=== PATIENT | male | born 1960 | race Caucasian/White ===

== ENCOUNTER → 2019-01-13 | Outpatient (CLI) | payer OTHER ==
[2019-01-13 07:22] LABS: HCT 46.5 % (39.0-53.0); HGB 15.9 gm/dL (13.0-17.5); MCH 33.2 pg (25.0-35.0); MCHC 34.1 g/dL (31.0-37.0); MCV 97.4 fL (80.0-100.0); Mean Platelet Volume 6.8; Platelet Count 231 k/uL (150-450); RBC 4.77 m/uL (4.30-5.90); RDW 12.9 % (11.5-15.5); WBC 7.7 k/uL (3.8-10.6)
[2019-01-13 13:38] LABS: Albumin 4.5 g/dL (3.80-4.90); Albumin/Globulin Ratio 2.14 (1.60-3.17); Anion Gap 9.8 mmol/L (4.00-12.00); Calcium 9.5 mg/dL (8.7-10.3); Carbon Dioxide 27.2 mmol/L (21.6-31.8); Globulin 2.1 g/dL (1.6-3.3); LDL Cholesterol,Calculated 105.2 mg/dL (0.0-131.0); Potassium 4.7 mmol/L (3.5-5.5); Total Bilirubin 0.6 mg/dL (0.3-1.2); Total Protein 6.6 g/dL (6.2-8.2); VLDL Calculation 23.8 mg/dL (5.00-40.00)
[2019-01-13 14:40] LABS: Hemoglobin A1C 6.3 % (4.0-6.0)
== END ==
LOC: LABWHC1 06:42
PROVIDERS: ATTEND Internal Medicine
DX: E11.65 Type 2 diabetes mellitus with hyperglycemia (principal); E87.8 Other disorders of electrolyte and fluid balance, not elsewhere classified; E78.41 Elevated Lipoprotein(a); N40.0 Benign prostatic hyperplasia without lower urinary tract symptoms; R53.83 Other fatigue; Z12.9 Encounter for screening for malignant neoplasm, site unspecified; Z13.9 Encounter for screening, unspecified; Z13.220 Encounter for screening for lipoid disorders; Z13.228 Encounter for screening for other metabolic disorders
CPT/HCPCS: 36415; 80053; 80061; 83036; 84153; 85027

== ENCOUNTER → 2020-12-20 | Outpatient (CLI) | payer OTHER ==
--- NOTE | 2020-12-20 08:00 | US ---
EXAMINATION TYPE: US abdomen complete DATE OF EXAM: 12/20/2020 COMPARISON: NONE CLINICAL HISTORY: R94.5 Increased Liver Function. EXAM MEASUREMENTS: Liver Length: 15.3 cm Gallbladder Wall: Surgically absent CBD: 0.5 cm Spleen: 11.7 cm Right Kidney: 11.4 x 4.6 x 5.4 cm Left Kidney: 10.7 x 5.1 x 6.0 cm Extensive midline bowel gas. Pancreas: Tail obscured by overlying bowel gas Liver: Increased attenuation Gallbladder: Surgically absent Evidence for sonographic Marinelli's sign: no CBD: limited visualization Spleen: wnl Right Kidney: No hydronephrosis or masses seen Left Kidney: parapelvic cysts, largest measuring 1.2 x 1.0 x 1.0cm Upper IVC: wnl Abd Aorta: bifurcation obscured by bowel gas, otherwise wnl The liver is homogenous. The intrahepatic portion of the IVC and proximal abdominal aorta are within normal limits. Common bile duct is unremarkable. The visualized portions of the pancreas are homog enous. The spleen is unremarkable. Kidneys are symmetric and free of hydronephrosis. No renal lesi ons are seen. IMPRESSION: No distinct abnormality seen.
== END | disposition home or self-care (01) ==
LOC: RADUSWWP 06:59
PROVIDERS: ATTEND Family Medicine
DX: R94.5 Abnormal results of liver function studies (principal)
CPT/HCPCS: 76700

== ENCOUNTER → 2023-05-05 | Outpatient (CLI) | payer BC ==
[2023-05-05 09:00] LABS: African American GFR (CKD) >90 (>60 ml/min/1.73 sqM); Blood Urea Nitrogen 21 mg/dL (9-20); Non-African American GFR(CKD) >90 (>60 ml/min/1.73 sqM)
--- NOTE | 2023-05-05 09:31 | CT ---
EXAMINATION TYPE: CT chest w con CT DLP: 577 mGycm, Automated exposure control for dose reduction was used. DATE OF EXAM: 05/05/2023 9:22 AM COMPARISON: Chest radiograph from 06/19/2011 CLINICAL INDICATION:Male, 62 years old with history of R59.0 LOCALIZED ENLARGED LYMPH NODES; PHH, ENL ARGED LYMPH NODES /SPOT ON LUNGS TECHNIQUE: Multiple axial images were obtained through the chest following the administration of 100 cc of Isovue 300. . Coronal and sagittal reformats reviewed. FINDINGS: LUNGS/ PLEURA: No pleural effusion, pneumothorax, focal consolidation. No suspicious pulmonary mass o r nodule. Calcified granuloma along the left major fissure. Subpleural reticular opacities primarily within the lung bases and upper lobes bilaterally. AIRWAY: Patent and unremarkable.. HEART: Size within normal limits. No pericardial effusion. MEDIASTINUM: Nonspecific enlarged subcarinal lymph node measuring 1.2 cm short axis and prevascular s pace lymph node measuring 1.1 cm short axis. No axillary adenopathy. VASCULATURE: No aortic aneurysm. MUSCULOSKELETAL: No acute osseous abnormalities SOFT TISSUES/LYMPH NODES: Minimal bilateral gynecomastia. LOWER NECK: No significant findings. UPPER ABDOMEN: Diffuse low-attenuation to the liver parenchyma. Post cholecystectomy changes. Nonobst ructive right renal 2 mm calculus. IMPRESSION: 1. Subpleural reticular opacities primarily within the lung bases and bilateral upper lobes. Correla te for atypical pneumonia versus developing interstitial disease. Consider short-term follow-up exam in 3 months. 2. Couple of enlarged nonspecific mediastinal lymph nodes measuring up to 1.2 centimeters short axis . This may be reactive to #1. 3. Hepatic steatosis. 4. Nonobstructive right renal calculus.
== END | disposition home or self-care (01) ==
LOC: RADCTMAIN 08:13
PROVIDERS: ATTEND Family Medicine
DX: R91.8 Other nonspecific abnormal finding of lung field (principal); N20.0 Calculus of kidney; K76.0 Fatty (change of) liver, not elsewhere classified; R59.0 Localized enlarged lymph nodes
CPT/HCPCS: 82565; 84520; 71260; 36415; Q9967

== ENCOUNTER → 2023-07-15 | Outpatient (CLI) | payer BC ==
[2023-07-15 13:48] LABS: African American GFR (CKD) >90 (>60 ml/min/1.73 sqM); Blood Urea Nitrogen 24 mg/dL (9-20); Non-African American GFR(CKD) 88 (>60 ml/min/1.73 sqM)
--- NOTE | 2023-07-15 14:57 | CT ---
EXAMINATION TYPE: CT chest w con CT DLP: 432.0 mGycm, Automated exposure control for dose reduction was used. DATE OF EXAM: 07/15/2023 2:47 PM COMPARISON: CT 05/05/2023. CLINICAL INDICATION:Male, 62 years old with history of R59.0 LOCALIZED ENLARGED LYMPH NODES; PHH, enl arged lymph nodes TECHNIQUE: Multiple axial images were obtained through the chest. Sagittal and coronal reformats were created for review. Contrast used:100 mL of Isovue 300 with IV Contrast (None if empty) Oral contrast used: (None if empty) FINDINGS: LUNGS/ PLEURA: Scattered scattered reticular opacities throughout the lungs are predominantly periphe rally and not significantly changed. There is no focal consolidation, pneumothorax or pleural effusio n. Intrafissural lymph node along the left major fissure. Series 4 image 27. AIRWAY: Patent and unremarkable. HEART: Heart is mildly enlarged for size. There is mild coronary artery atherosclerosis. MEDIASTINUM: Prominent lymph node in the prevascular spacer of the anterior mediastinum measuring 10 mm which is at the upper limits of normal. Subcarinal region lymph node measuring up to 1.3 cm. Both these are similar to prior. VASCULATURE: Atherosclerotic calcifications are present throughout the aorta and its branches. MUSCULOSKELETAL: Mild disc degeneration changes are present throughout the thoracolumbar spine. SOFT TISSUES/LYMPH NODES: Unremarkable. LOWER NECK: No significant findings. UPPER ABDOMEN: The gallbladder surgically absent. Mild hepatic steatosis. IMPRESSION: 1. Stable mediastinal lymph node measuring up to 1.0 cm in the prevascular space and subcarinal radha on. Findings could be secondary to #2. 2. Similar reticular predominantly peripheral opacities throughout the lungs could represent [facility]pec [facility] pneum[facility] changes. 3. Hepatic steatosis. 4. Mild coronary artery atherosclerosis with mild cardiomegaly.
== END | disposition home or self-care (01) ==
LOC: RADCTMAIN 12:55
PROVIDERS: ATTEND Family Medicine
DX: I25.10 Atherosclerotic heart disease of native coronary artery without angina pectoris (principal); K76.0 Fatty (change of) liver, not elsewhere classified; R59.0 Localized enlarged lymph nodes; I51.7 Cardiomegaly
CPT/HCPCS: 82565; 84520; 71260; 36415; Q9967

== ENCOUNTER 2024-01-26 07:44 | Day surgery (SDC) | payer BC ==
[2024-01-20 09:05] VITALS: BMI 31.9
[~2024-01-26 07:44] MED LIST: LIDOCAINE 1% (10MG/ML) FOR IV START INTRADERMA PRN
[2024-01-26] MEDS: LACTATED RINGERS 1,000 ML IV SCH (08:10)
[2024-01-26 08:21] LABS: Glucose,Whole Blood 85 mg/dL (70-110)
[2024-01-26 08:25] VITALS: RESP 18; TEMP 97.5
[2024-01-26] MEDS ORDERED: LIDOCAINE 1% INJ 10MG/ML (20 ML MDV) ONE (08:28)
[2024-01-26] MEDS ORDERED: fentaNYL (PF) 50 MCG/ML 2 ML AMP ONE (08:28)
[2024-01-26] MEDS ORDERED: PROPOFOL 10 MG/ML 20 ML VIAL IV ONE (08:28)
--- NOTE | 2024-01-26 08:37 | P.GSHP ---
History of Present Illness H&P Date: 01/26/24 Chief Complaint: Colon cancer screening 63-year-old male here for colonoscopy. Says his last 1 was about 5 years ago. Believes this is his third colonoscopy. Previously normal. No family history of colon cancer. No bowel complaints. Past Medical History Past Medical History: Diabetes Mellitus, Hyperlipidemia, Osteoarthritis (OA), Sleep Apnea/CPAP/BIPAP Additional Past Medical History / Comment(s): haSN'T needed CPAP since weight loss, fatty liver History of Any Multi-Drug Resistant Organisms: None Reported Past Surgical History: Appendectomy, Cholecystectomy Additional Past Surgical History / Comment(s): colonoscopies, BILAT CATARACTS REMOVED WITH LENS IMPLANTS Past Anesthesia/Blood Transfusion Reactions: No Reported Reaction Smoking Status: Never smoker - Past Family History Mother Family Medical History: No Reported History Medications and Allergies Home Medications Medication Instructions Recorded Confirmed Type Atorvastatin [Lipitor] 20 mg PO HS 12/18/23 01/26/24 History Cinnamon Bark [Cinnamon] 500 mg PO DAILY 12/18/23 01/26/24 History Milk Thistle 150 mg PO DAILY 12/18/23 01/26/24 History Multivitamins, Thera [Multivitamin 1 tab PO DAILY 12/18/23 01/26/24 History (formulary)] Semaglutide [Ozempic] 0.5 mg SQ SA 12/18/23 01/26/24 History Sertraline [Zoloft] 100 mg PO HS 12/18/23 01/26/24 History Allergies Allergy/AdvReac Type Severity Reaction Status Date / Time codeine Allergy Rapid Verified 01/26/24 08:12 Heart Rate Surgical - Exam Vital Signs Temp Pulse Resp BP Pulse Ox 97.5 F L 84 18 138/99 98 01/26/24 08:22 01/26/24 08:22 01/26/24 08:22 01/26/24 08:22 01/26/24 08:22 Physical exam: General: Well-developed, well-nourished HEENT: Normocephalic, sclerae nonicteric Abdomen: Nontender, nondistended Extremities: No edema Neuro: Alert and oriented Assessment and Plan (1) Colon cancer screening Narrative/Plan: Will proceed with colonoscopy at this time. Current Visit: Yes Status: Acute Code(s): Z12.11 - ENCOUNTER FOR SCREENING FOR MALIGNANT NEOPLASM OF COLON SNOMED Code(s): 591569699
--- NOTE | 2024-01-26 08:51 | P.PCN ---
Date of Procedure: 01/26/24 Procedure(s) Performed: PREOPERATIVE DIAGNOSIS: Colon cancer screening POSTOPERATIVE DIAGNOSIS: Small rectal polyp PROCEDURE: Colonoscopy with snare polypectomy ANESTHESIA: MAC SURGEON: Jayson Little M.D. SPECIMENS: Polyp ENDOSCOPIC PROCEDURE: The patient was placed on the endoscopy table in the left decubitus position. The Olympus colonoscope was inserted into the anus and passed under direct visualization to the base of the cecum. The appendiceal orifice was visualized. From that point the scope was slowly withdrawn inspecting all surfaces carefully. There were no neoplastic inflammatory or polypoid lesions throughout the cecum, ascending, transverse, descending, and sigmoid colon. In the rectum a small polyp was seen and removed using the snare with cautery technique. No visible diverticulosis was noted. Digital rectal examination was normal. The patient was taken to the recovery room in stable condition per anesthesia guidelines. RECOMMENDATIONS: Await biopsy results. Anticipate repeat colonoscopy 5 to 10 years.
[2024-01-26 10:17] VITALS: BP 137/78; PULSE 64
== END 2024-01-26 09:30 | disposition home or self-care (01) ==
LOC: ORWHC2ENDO 07:44
PROVIDERS: ATTEND Surgery
DX: Z12.11 Encounter for screening for malignant neoplasm of colon (principal); D12.8 Benign neoplasm of rectum; K76.0 Fatty (change of) liver, not elsewhere classified; M19.90 Unspecified osteoarthritis, unspecified site; E78.5 Hyperlipidemia, unspecified; G47.33 Obstructive sleep apnea (adult) (pediatric); E11.9 Type 2 diabetes mellitus without complications; Z90.49 Acquired absence of other specified parts of digestive tract; Z79.899 Other long term (current) drug therapy; Z88.5 Allergy status to narcotic agent
CPT/HCPCS: 88305; 45385; J2001; J3010; J2704

== ENCOUNTER 2024-03-22 17:13 | Emergency (ER) | payer BC ==
[2024-03-22] MEDS: ONDANSETRON ODT 4 MG TAB PO STA (17:56)
--- NOTE | 2024-03-22 18:11 | ED ---
General Adult HPI - General Chief complaint: Nausea/Vomiting/Diarrhea Stated complaint: vomiting Time Seen by Provider: 03/22/24 18:08 Source: patient, RN notes reviewed Mode of arrival: ambulatory Limitations: no limitations - History of Present Illness Initial comments: 63-year-old male presents to the emergency department for evaluation of nausea, vomiting. Patient states that this started around 8 PM last night. He admits to some right-sided flank pain and diffuse abdominal discomfort. He states that this is worsened as he has been here. Admits to diarrhea. Denies fever, chills. Denies hematuria, dysuria. - Related Data Home Medications Medication Instructions Recorded Confirmed Atorvastatin [Lipitor] 20 mg PO HS 12/18/23 01/26/24 Cinnamon Bark [Cinnamon] 500 mg PO DAILY 12/18/23 01/26/24 Milk Thistle 150 mg PO DAILY 12/18/23 01/26/24 Multivitamins, Thera [Multivitamin 1 tab PO DAILY 12/18/23 01/26/24 (formulary)] Semaglutide [Ozempic] 0.5 mg SQ SA 12/18/23 01/26/24 Sertraline [Zoloft] 100 mg PO HS 12/18/23 01/26/24 Previous Rx's Medication Instructions Recorded HYDROcodone/APAP 10-325MG [[place] 1 tab PO Q6H PRN #12 tab 03/22/24 10-325] Ketorolac [Toradol] 10 mg PO Q8HR #15 tab 03/22/24 Ondansetron Odt [Zofran Odt] 4 mg PO Q8HR PRN #10 tab 03/22/24 Tamsulosin [Flomax] 0.4 mg PO DAILY #7 cap 03/22/24 Allergies Allergy/AdvReac Type Severity Reaction Status Date / Time codeine Allergy Rapid Verified 01/26/24 08:12 Heart Rate Review of Systems ROS Statement: Those systems with pertinent positive or pertinent negative responses have been documented in the HPI. ROS Other: All systems not noted in ROS Statement are negative. Past Medical History Past Medical History: Diabetes Mellitus, Hyperlipidemia, Osteoarthritis (OA), Sleep Apnea/CPAP/BIPAP Additional Past Medical History / Comment(s): haSN'T needed CPAP since weight loss, fatty liver History of Any Multi-Drug Resistant Organisms: None Reported Past Surgical History: Appendectomy, Cholecystectomy Additional Past Surgical History / Comment(s): colonoscopies, BILAT CATARACTS REMOVED WITH LENS IMPLANTS Past Anesthesia/Blood Transfusion Reactions: No Reported Reaction Past Psychological History: No Psychological Hx Reported Smoking Status: Never smoker Past Alcohol Use History: None Reported Past Drug Use History: None Reported - Past Family History Mother Family Medical History: No Reported History General Exam - General Exam Comments Initial Comments: Visual Physical Exam Vital signs reviewed General: Well-appearing, nontoxic, no acute distress. Head: Normocephalic, atraumatic Eyes: PERRLA, EOMI ENT: Airway patent Chest: Nonlabored breathing Skin: No visual rash, normal skin tone Neuro: Alert and oriented 3 Musculoskeletal: No gross abnormalities Limitations: no limitations General appearance: alert, in no apparent distress Head exam: Present: atraumatic, normocephalic, normal inspection Eye exam: Present: normal appearance, PERRL, EOMI. Absent: scleral icterus, conjunctival injection, periorbital swelling ENT exam: Present: normal exam, mucous membranes moist Neck exam: Present: normal inspection. Absent: tenderness, meningismus, lymphadenopathy Respiratory exam: Present: normal lung sounds bilaterally. Absent: respiratory distress, wheezes, rales, rhonchi, stridor Cardiovascular Exam: Present: regular rate, normal rhythm, normal heart sounds. Absent: systolic murmur, diastolic murmur, rubs, gallop, clicks GI/Abdominal exam: Present: soft, normal bowel sounds. Absent: distended, tenderness, guarding, rebound, rigid Extremities exam: Present: normal inspection, full ROM, normal capillary refill. Absent: tenderness, pedal edema, joint swelling, calf tenderness Back exam: Present: CVA tenderness (R). Absent: CVA tenderness (L) Neurological exam: Present: alert, oriented X3 Psychiatric exam: Present: normal affect, normal mood Skin exam: Present: warm, dry, intact, normal color. Absent: rash Course Vital Signs 03/22/24 03/22/24 03/22/24 17:51 21:43 22:43 Temperature 97.4 F L 97.8 F 97.4 F L Pulse Rate 72 81 79 Respiratory 18 20 18 Rate Blood Pressure 166/66 161/76 140/69 O2 Sat by Pulse 97 98 97 Oximetry Medical Decision Making - Medical Decision Making Quick note preformed and electronically signed by DESIRAE Orozco-Rubina Was pt. sent in by a medical professional or institution (DESIRAE Casillas, EQUIPMENT SPECIALIST, urgent care, hospital, or retirement...) When possible be specific @ -[No] Did you speak to anyone other than the patient for history (EMS, parent, family, police, friend...)? What history was obtained from this source @ -[No] Did you review nursing and triage notes (agree or disagree)? Why? @ -[I reviewed and agree with nursing and triage notes] Were old charts reviewed (outside hosp., previous admission, EMS record, old EKG, old radiological studies, urgent care reports/EKG's, retirement records)? Report findings @ -[No old charts were reviewed] Differential Diagnosis (chest pain, altered mental status, abdominal pain women, abdominal pain men, vaginal bleeding, weakness, fever, dyspnea, syncope, headache, dizziness, GI bleed, back pain, seizure, CVA, palpatations, mental health, musculoskeletal)? @ -Differential Abdominal Pain Men: Appendicitis, cholecystitis, diverticulosis, ischemic bowel, pancreatitis, hepatitis, UTI, gastroenteritis, AAA, incarcerated hernia, bowel obstruction, constipation, inflammatory bowel, hepatitis, peptic ulcer disease, splenic infarction, perforated viscus, testicular torsion, this is not meant to be an all-inclusive list ] EKG interpreted by me (3pts min.). @ -None X-rays interpreted by me (1pt min.). @ -[None done] CT interpreted by me (1pt min.). @ -[CT abd pelvis obtained shows 4mm obstructing renal stone above right UVJ] U/S interpreted by me (1pt. min.). @ -[None done] What testing was considered but not performed or refused? (CT, X-rays, U/S, labs)? Why? @ -[None] What meds were considered but not given or refused? Why? @ -[None] Did you discuss the management of the patient with other professionals (professionals i.e. DEISRAE Casillas, EQUIPMENT SPECIALIST, lab, RT, psych nurse, social work job titles, graphics software engineer, teacher, chief school finance officer, gearcase assembler)? Give summary @ -[Discussed with lab, confirmed no RBC or WBC in urine] Was smoking cessation discussed for >3mins.? @ -[No] Was critical care preformed (if so, how long)? @ -[No] Were there social determinants of health that impacted care today? How? (Homelessness, low income, unemployed, alcoholism, drug addiction, transportation, low edu. Level, literacy, decrease access to med. care, halfway, rehab)? @ -[No] Was there de-escalation of care discussed even if they declined (Discuss DNR or withdrawal of care, Hospice)? DNR status @ -[No] What co-morbidities impacted this encounter? (DM, HTN, Smoking, COPD, CAD, Cancer, CVA, ARF, Chemo, Hep., AIDS, mental health diagnosis, sleep apnea, morbid obesity)? @ -[None] Was patient admitted / discharged? Hospital course, mention meds given and route, prescriptions, significant lab abnormalities, going to OR and other pertinent info. @ -[discharged. Patient presented to the emergency department for evaluation of nausea and vomiting, flank pain. Laboratory studies obtained. WBC 19.6 likely stress leukocytosis. Mild elevation in creatinine at 1.5. UA showed no evidence of infectious process. Patient provided 2L NS in the ED along with toradol and zofran for symptom control. Nausea and vomiting improved. Patient underwent CT revealing 4mm obstructing stone before right UVJ. Patient will be discharged home with urology follow up. Patient understanding and agreeable with plan. Case discussed with Dr. Rivera ] Undiagnosed new problem with uncertain prognosis? @ -[No] Drug Therapy requiring intensive monitoring for toxicity (Heparin, Nitro, Insulin, Cardizem)? @ -[No] Were any procedures done? @ -[No] Diagnosis/symptom? @ -[urolithiasis ] Acute, or Chronic, or Acute on Chronic? @ -[acute] Uncomplicated (without systemic symptoms) or Complicated (systemic symptoms)? @ -[uncomplicated] Side effects of treatment? @ -[No] Exacerbation, Progression, or Severe Exacerbation? @ -[No] Poses a threat to life or bodily function? How? (Chest pain, USA, AR, pneumonia, PE, COPD, DKA, ARF, appy, cholecystitis, CVA, Diverticulitis, Homicidal, Suicidal, threat to staff... and all critical care pts) @ -[No] - Lab Data Result diagrams: 03/22/24 17:55 03/22/24 17:55 Lab Results 03/22/24 03/22/24 03/22/24 Range/Units 17:55 17:55 17:55 WBC 19.6 H (3.8-10.6) k/uL RBC 4.77 (4.30-5.90) m/uL Hgb 15.9 (13.0-17.5) gm/dL Hct 48.2 (39.0-53.0) % MCV 101.1 H (80.0-100.0) fL MCH 33.4 (25.0-35.0) pg MCHC 33.0 (31.0-37.0) g/dL RDW 12.8 (11.5-15.5) % Plt Count 241 (150-450) k/uL MPV 7.7 Neutrophils % 90 % Lymphocytes % 4 % Monocytes % 6 % Eosinophils % 0 % Basophils % 0 % Neutrophils # 17.5 H (1.3-7.7) k/uL Lymphocytes # 0.7 L (1.0-4.8) k/uL Monocytes # 1.1 H (0-1.0) k/uL Eosinophils # 0.0 (0-0.7) k/uL Basophils # 0.0 (0-0.2) k/uL Manual Slide Review Performed Sodium 135 L (137-145) mmol/L Potassium 4.3 (3.5-5.1) mmol/L Chloride 99 (98-107) mmol/L Carbon Dioxide 26 (22-30) mmol/L Anion Gap 10 mmol/L BUN 26 H (9-20) mg/dL Creatinine 1.54 H (0.66-1.25) mg/dL Est GFR (CKD-EPI)AfAm 55 (>60 ml/min/1.73 sqM) Est GFR (CKD-EPI)NonAf 48 (>60 ml/min/1.73 sqM) Glucose 138 H (74-99) mg/dL Calcium 9.6 (8.4-10.2) mg/dL Total Bilirubin 1.1 (0.2-1.3) mg/dL AST 40 (17-59) U/L ALT 30 (4-49) U/L Alkaline Phosphatase 54 (38-126) U/L Total Protein 7.7 (6.3-8.2) g/dL Albumin 4.8 (3.5-5.0) g/dL Amylase 57 (30-110) U/L Lipase 41 (23-300) U/L Urine Color Urine Appearance (Clear) Urine pH (5.0-8.0) Ur Specific [place] (1.001-1.035) Urine Protein (Negative) Urine Glucose (UA) (Negative) Urine Ketones (Negative) Urine Blood (Negative) Urine Nitrite (Negative) Urine Bilirubin (Negative) Urine Urobilinogen (<2.0) mg/dL Ur Leukocyte Esterase (Negative) Influenza Type A (PCR) Not Detected (Not Detectd) Influenza Type B (PCR) Not Detected (Not Detectd) RSV (PCR) Not Detected (Not Detectd) SARS-CoV-2 (PCR) Not Detected (Not Detectd) 03/22/24 Range/Units 20:05 WBC (3.8-10.6) k/uL RBC (4.30-5.90) m/uL Hgb (13.0-17.5) gm/dL Hct (39.0-53.0) % MCV (80.0-100.0) fL MCH (25.0-35.0) pg MCHC (31.0-37.0) g/dL RDW (11.5-15.5) % Plt Count (150-450) k/uL MPV Neutrophils % % Lymphocytes % % Monocytes % % Eosinophils % % Basophils % % Neutrophils # (1.3-7.7) k/uL Lymphocytes # (1.0-4.8) k/uL Monocytes # (0-1.0) k/uL Eosinophils # (0-0.7) k/uL Basophils # (0-0.2) k/uL Manual Slide Review Sodium (137-145) mmol/L Potassium (3.5-5.1) mmol/L Chloride (98-107) mmol/L Carbon Dioxide (22-30) mmol/L Anion Gap mmol/L BUN (9-20) mg/dL Creatinine (0.66-1.25) mg/dL Est GFR (CKD-EPI)AfAm (>60 ml/min/1.73 sqM) Est GFR (CKD-EPI)NonAf (>60 ml/min/1.73 sqM) Glucose (74-99) mg/dL Calcium (8.4-10.2) mg/dL Total Bilirubin (0.2-1.3) mg/dL AST (17-59) U/L ALT (4-49) U/L Alkaline Phosphatase (38-126) U/L Total Protein (6.3-8.2) g/dL Albumin (3.5-5.0) g/dL Amylase (30-110) U/L Lipase (23-300) U/L Urine Color Light Yellow Urine Appearance Clear (Clear) Urine pH 6.0 (5.0-8.0) Ur Specific [place] 1.029 (1.001-1.035) Urine Protein Negative (Negative) Urine Glucose (UA) Negative (Negative) Urine Ketones 3+ H (Negative) Urine Blood Negative (Negative) Urine Nitrite Negative (Negative) Urine Bilirubin Negative (Negative) Urine Urobilinogen <2.0 (<2.0) mg/dL Ur Leukocyte Esterase Negative (Negative) Influenza Type A (PCR) (Not Detectd) Influenza Type B (PCR) (Not Detectd) RSV (PCR) (Not Detectd) SARS-CoV-2 (PCR) (Not Detectd) Disposition Clinical Impression: Urolithiasis Disposition: HOME SELF-CARE Condition: Stable Instructions (If sedation given, give patient instructions): Ureteral Stones (ED) Additional Instructions: Please follow up with your primary care provider and urology. Return to the emergency department for new or worsening symptoms. Prescriptions: Tamsulosin [Flomax] 0.4 mg PO DAILY #7 cap HYDROcodone/APAP 10-325MG [[place] 10-325] 1 tab PO Q6H PRN #12 tab PRN Reason: pain Ketorolac [Toradol] 10 mg PO Q8HR #15 tab Ondansetron Odt [Zofran Odt] 4 mg PO Q8HR PRN #10 tab PRN Reason: Nausea Is patient prescribed a controlled substance at d/c from ED?: Yes When asked, does pt state using other controlled substances?: No If prescribed controlled substance>3 days was MAPS reviewed?: Prescribed <3 Days Referrals: Edgardo Solares MD [Primary Care Provider] - 1-2 days Gordo Catherine MD [STAFF PHYSICIAN] - 1-2 days
[2024-03-22 19:05] LABS: ALT 30 U/L (4-49); AST 40 U/L (17-59); African American GFR (CKD) 55 (>60 ml/min/1.73 sqM); Albumin 4.8 g/dL (3.5-5.0); Alkaline Phosphatase 54 U/L (38-126); Amylase 57 U/L (30-110); Anion Gap 10 mmol/L; Blood Urea Nitrogen 26 mg/dL (9-20); Calcium 9.6 mg/dL (8.4-10.2); Carbon Dioxide 26 mmol/L (22-30); Chloride 99 mmol/L (98-107); Glucose 138 mg/dL (74-99); Lipase 41 U/L (23-300); Non-African American GFR(CKD) 48 (>60 ml/min/1.73 sqM); Potassium 4.3 mmol/L (3.5-5.1); Sodium 135 mmol/L (137-145); Total Bilirubin 1.1 mg/dL (0.2-1.3); Total Protein 7.7 g/dL (6.3-8.2)
[2024-03-22 19:29] LABS: Basophils % (A) 0 %; Eosinophils % (A) 0 %; HCT 48.2 % (39.0-53.0); HGB 15.9 gm/dL (13.0-17.5); Lymphocytes # (A) 0.7 k/uL (1.0-4.8); Lymphocytes % (A) 4 %; MCH 33.4 pg (25.0-35.0); MCV 101.1 fL (80.0-100.0); Mean Platelet Volume 7.7; Monocytes # (A) 1.1 k/uL (0-1.0); Monocytes % (A) 6 %; Neutrophils # (A) 17.5 k/uL (1.3-7.7); Neutrophils % (A) 90 %; Platelet Count 241 k/uL (150-450); RBC 4.77 m/uL (4.30-5.90); RDW 12.8 % (11.5-15.5); WBC 19.6 k/uL (3.8-10.6)
[2024-03-22] MEDS: SODIUM CHLORIDE 0.9% 2,000 ML IV ONE (20:08)
[2024-03-22] MEDS: KETOROLAC 15 MG/ML 1 ML VIAL IVP STA ×2 (20:15→22:11)
[2024-03-22] MEDS: ONDANSETRON 4 MG/2 ML VIAL IVP STA (20:17)
[2024-03-22 20:19] LABS: Appearance,Urine Clear (Clear); Bilirubin,Urine Negative (Negative); Blood,Urine Negative (Negative); Color,Urine Light Yellow; Glucose,Urine (UA) Negative (Negative); Ketones,Urine 3+ (Negative); Leukocyte Esterase,Urine Negative (Negative); Nitrite,Urine Negative (Negative); Protein,Urine Negative (Negative); Specific Gravity,Urine 1.029 (1.001-1.035); Urobilinogen,Urine <2.0 mg/dL (<2.0)
--- NOTE | 2024-03-22 21:43 | CT ---
EXAMINATION TYPE: CT abdomen pelvis wo con DATE OF EXAM: 03/22/2024 COMPARISON: None INDICATION: right flank pain since 8pm yesterday DLP: 676.2 mGycm, Automated exposure control for dose reduction was used. CONTRAST: 0 mL of Isovue 300. Study performed without Oral Contrast TECHNIQUE: Axial images were obtained from above the diaphragm to the pubic rami in the axial plane a t 5 mm thick sections. Reconstructed images are reviewed on the computer in the coronal plane. FINDINGS: Limited CT sections are obtained the lung bases. The lung bases are clear. Some pulmonary fibrosis may be present. Coronary artery calcifications noted. CT ABDOMEN: Liver: Normal Spleen: Normal Pancreas: Normal Adrenal glands: The adrenal glands are normal. Gallbladder: Normal Kidneys: No masses are evident. There is moderate right hydronephrosis. There is a nonobstructing 0.4 cm renal stone superior-medial right kidney. Hydroureter extends to the urinary bladder. At the dis sarah right ureter just above the right ureterovesical junction there is an obstructing 0.4 cm calcific ation. No cysts are present. Aorta: Vascular calcification is within the aorta. Inferior vena cava: Normal. CT PELVIS: Loops of bowel within the abdomen and pelvis are normal. This study is lateral contrast limiting bowel evaluation. Appendix: Not clearly identified. No dilated tubular structure or inflammatory change is evident. Urinary bladder: Normal. Genitourinary structures: Prostate is mild prominence Osseous structures: No suspicious lytic or sclerotic lesions. IMPRESSION: 1. Obstructing 0.4 cm distal right ureteral stone above the right ureterovesical junction. 2. Nonobstructing superior pole right renal stone.
[2024-03-22] MEDS: ONDANSETRON 4 MG ODT STARTER PACK 2 TAB BTL PO STA (22:37)
[2024-03-22 22:48] VITALS: BP 140/69; PULSE 79; RESP 18; TEMP 97.4
== END 2024-03-22 22:48 | disposition home or self-care (01) ==
LOC: EC 17:13
DX: N20.2 Calculus of kidney with calculus of ureter (principal); Z88.5 Allergy status to narcotic agent
CPT/HCPCS: 36415; 80053; 82150; 83690; 85025; 81003; 87636; 74176; 99284; 96374; 96375; 96361 ×2; J2405; J1885; S0119